=== PATIENT | female | born 1965 | race Native Hawaiian/Other Pacific Islander ===

== ENCOUNTER 2016-09-20 07:09 | Outpatient (CLI) | payer OTHER | END 2016-09-20 19:08 | disposition home or self-care (01) | LOC: US 07:09 | DX: E04.1 Nontoxic single thyroid nodule (principal) ==

== ENCOUNTER 2016-10-02 06:31 | Outpatient (CLI) | payer OTHER | END 2016-10-02 19:18 | disposition home or self-care (01) | LOC: LABW 06:31 | DX: E04.9 Nontoxic goiter, unspecified (principal) | CPT/HCPCS: 84439; 84443 ==

== ENCOUNTER 2017-01-31 03:56 | Outpatient (CLI) | payer OTHER | END 2017-01-31 19:09 | disposition home or self-care (01) | LOC: LABW 03:56 | DX: E04.8 Other specified nontoxic goiter (principal) | CPT/HCPCS: 84436; 84443; 84479; 86376 ==

== ENCOUNTER 2017-10-03 15:59 | Outpatient (CLI) | payer OTHER | END 2017-10-03 19:37 | disposition home or self-care (01) | LOC: RESP 15:59 | DX: M54.12 Radiculopathy, cervical region (principal); G56.22 Lesion of ulnar nerve, left upper limb | CPT/HCPCS: 95885; 95910 ==

== ENCOUNTER 2019-11-20 09:24 | Outpatient (CLI) | payer OTHER | END 2019-11-20 20:09 | disposition home or self-care (01) | LOC: MAMMO 09:24 | DX: N63.10 Unspecified lump in the right breast, unspecified quadrant (principal) | CPT/HCPCS: G0279 ==

== ENCOUNTER 2019-11-25 12:26 | Outpatient (CLI) | payer OTHER | END 2019-11-25 22:26 | disposition home or self-care (01) | LOC: US 12:26 | DX: N63.10 Unspecified lump in the right breast, unspecified quadrant (principal); N60.02 Solitary cyst of left breast ==

== ENCOUNTER 2020-07-19 18:32 | Outpatient (CLI) | payer OTHER ==
[2020-07-19 18:57] LABS: PLATELET COUNT 266 K/uL (152-353)
[2020-07-19 19:26] LABS: POTASSIUM 3.2 mmol/L (3.6-5.2)
== END 2020-07-19 21:38 | disposition home or self-care (01) ==
LOC: LABW 18:32
PROVIDERS: ATTEND Internal Medicine Medical Oncology
DX: C50.111 Malignant neoplasm of central portion of right female breast (principal); M81.0 Age-related osteoporosis without current pathological fracture; Z51.81 Encounter for therapeutic drug level monitoring; E55.9 Vitamin D deficiency, unspecified; Z79.899 Other long term (current) drug therapy
CPT/HCPCS: 80053; 82306; 85027

== ENCOUNTER 2020-10-11 16:55 | Outpatient (CLI) | payer OTHER ==
[2020-10-11 17:23] LABS: PLATELET COUNT 267 K/uL (152-353); POTASSIUM 3.7 mmol/L (3.6-5.2)
== END 2020-10-11 21:41 | disposition home or self-care (01) ==
LOC: LABW 16:55
PROVIDERS: ATTEND Internal Medicine Medical Oncology
DX: C50.111 Malignant neoplasm of central portion of right female breast (principal); M81.0 Age-related osteoporosis without current pathological fracture; Z51.81 Encounter for therapeutic drug level monitoring; Z79.899 Other long term (current) drug therapy; E55.9 Vitamin D deficiency, unspecified
CPT/HCPCS: 36415; 80053; 82306; 85027

== ENCOUNTER 2021-01-25 17:31 | Outpatient (CLI) | payer OTHER ==
[2021-01-25 17:57] LABS: PLATELET COUNT 260 K/uL (152-353)
[2021-01-25 18:07] LABS: POTASSIUM 3.7 mmol/L (3.6-5.2)
== END 2021-01-25 22:40 | disposition home or self-care (01) ==
LOC: LABW 17:31
PROVIDERS: ATTEND Internal Medicine Hematology & Oncology
DX: C50.111 Malignant neoplasm of central portion of right female breast (principal); M81.0 Age-related osteoporosis without current pathological fracture; Z51.81 Encounter for therapeutic drug level monitoring; Z79.899 Other long term (current) drug therapy; E55.9 Vitamin D deficiency, unspecified
CPT/HCPCS: 36415; 80053; 82306; 85027

== ENCOUNTER 2021-02-28 12:01 | Outpatient (CLI) | payer OTHER | END 2021-02-28 19:11 | disposition home or self-care (01) | LOC: LAB 12:01 | PROVIDERS: ATTEND Internal Medicine | DX: Z20.822 Contact with and (suspected) exposure to COVID-19 (principal) | CPT/HCPCS: 87635; G2023; U0003 ==

== ENCOUNTER 2021-07-28 16:40 | Outpatient (CLI) | payer OTHER ==
[2021-07-28 17:07] LABS: PLATELET COUNT 257 K/uL (152-353)
[2021-07-28 17:09] LABS: POTASSIUM 3.6 mmol/L (3.6-5.2)
== END 2021-07-28 19:16 | disposition home or self-care (01) ==
LOC: LABW 16:40
PROVIDERS: ATTEND Internal Medicine Hematology & Oncology
DX: C50.111 Malignant neoplasm of central portion of right female breast (principal); M81.0 Age-related osteoporosis without current pathological fracture; Z51.81 Encounter for therapeutic drug level monitoring; Z79.899 Other long term (current) drug therapy; E55.9 Vitamin D deficiency, unspecified
CPT/HCPCS: 36415; 80053; 85027; 86300

== ENCOUNTER 2021-10-03 16:36 | Outpatient (CLI) | payer OTHER | END 2021-10-03 19:16 | disposition home or self-care (01) | LOC: LABW 16:36 | PROVIDERS: ATTEND Internal Medicine | DX: I10 Essential (primary) hypertension (principal); E04.1 Nontoxic single thyroid nodule | CPT/HCPCS: 36415; 80061; 81000; 84439; 84443 ==

== ENCOUNTER 2022-11-06 09:04 | Outpatient (CLI) | payer BC, OTHER | END 2022-11-06 18:57 | disposition home or self-care (01) | LOC: RAD 09:04 | PROVIDERS: ATTEND Nurse Practitioner | DX: N95.1 Menopausal and female climacteric states (principal); Z79.811 Long term (current) use of aromatase inhibitors ==